=== PATIENT | male | born 1980 | race Caucasian/White ===

== ENCOUNTER 2020-07-02 14:33 | Emergency (ER) | payer BC, SELFPAY ==
--- NOTE | ~2020-07-02 | XR_ITS ---
EXAMINATION: XR chest 2V DATE: 07/02/2020 15:41 INDICATION: Midsternal chest pain. Left arm pain. Ulcer reflux. TECHNIQUE: Frontal and lateral views of the chest were obtained. COMPARISON: Chest 2 views 01/09/2019 FINDINGS: The chest demonstrates clear lungs without pneumonia, pleural effusion, or pneumothorax. Th e heart size is normal. IMPRESSION: 1. No acute cardiopulmonary disease. Reviewed, dictated and finalized at location B. WALL PLASTERER
--- NOTE | 2020-07-02 14:39 | ECG_ITS ---
Measurements Intervals [place] Rate: 80 P: 11 NE: 162 QRS: -9 QRSD: 94 T: -3 QT: 334 QTc: 387 Interpretive Statements SINUS RHYTHM WITH SINUS ARRHYTHMIA DELAYED PRECORDIAL R/S TRANSITION BORDERLINE T WAVE ABNORMALITY- ANT/INF LEADS BORDERLINE ECG Electronically Signed On 07-02-2020 14:46:21 TECHNICAL SALES SUPPORT MANAGER by Jarocho Castro D.O.
[2020-07-02 14:46] VITALS: BP 144/103; PULSE 91; RESP 17; TEMP 36.6; O2SAT 97
[2020-07-02 15:01] LABS: Basophils Percent Auto 0.4 % (0.2-1.2); Eosinophils Absolute Auto 0.1 K/mm3 (0-0.3); Eosinophils Percent Auto 1.5 % (0-4.4); Hemoglobin 17.8 g/dL (14.0-18.0); Immature Granulocyte Absolute 0.02 K/mm3 (0.00-0.031); Immature Granulocyte Percent A 0.3 % (0-0.5); Mean Corpuscular HGB Conc 34.9 g/dl (32-36); Mean Corpuscular Hemoglobin 31.6 pg (26-34); Mean Corpuscular Volume 90.4 fl (80-100); Mean Platelet Volume 9.5 fl (7.4-10.4); Monocytes Absolute Auto 0.4 K/mm3 (0.1-0.6); Monocytes Percent Auto 5.7 % (2.6-8.5); Neutrophils Absolute Auto 4.8 K/mm3 (1.3-6.7); Neutrophils Percent Auto 70.1 % (45.5-73.1); Platelet Count Result 257 k/mm3 (150-375); Red Blood Count 5.64 M/mm3 (4.6-6.20); Red Cell Distribution Width 11.9 % (11.5-14.5); White Blood Count 6.8 K/mm3 (4.5-10.0)
[2020-07-02 15:13] LABS: Anion Gap 9 mmol/L (8-16); Blood Urea Nitrogen 14 mg/dL (9-20); Calcium 9.9 mg/dL (8.4-10.2); Carbon Dioxide 28 mmol/L (22-30); Chloride 102 mmol/L (98-107); Estimated CRCL calculation 133 ml/min; Estimated Glomerular Filt Rate > 60; Glucose 110 mg/dL (75-110); Potassium 3.6 mmol/L (3.4-5.0); Sodium 139 mmol/L (137-145)
[2020-07-02 15:25] LABS: Troponin I < 0.012 ng/mL (0.000-0.034)
--- NOTE | 2020-07-02 15:50 | ED.CHESTPAIN ---
HPI - Chest Pain General Chief Complaint: Chest Pain Stated Complaint: chest pressure, burping, high blood pressure Time Seen by Provider: 07/02/20 15:50 Source: patient Mode of arrival: ambulatory Limitations: no limitations History of Present Illness HPI narrative: Patient is a 39-year-old male who presents to the emergency department for evaluation of chest pain, dizziness. Patient with a past medical history of acid reflux, recently placed on medication for this. Pain started today at 1 pm, center of chest, no associated radiation. Pt has some associating burping. Pt also experienced some radiation of pain to left arm after looking at symptoms on the internet. Pain is currently resolved. No current pain or dyspnea. No cough or fever. No recent sick contacts. Related Data Home Medications Medication Instructions Recorded Confirmed omeprazole 07/02/20 Allergies Allergy/AdvReac Type Severity Reaction Status Date / Time No Known Allergies Allergy Verified 07/02/20 16:14 Review of Systems Review of Systems: Narrative: CONSTITUTIONAL: Denies fever, chills, or sweats. EYES: Denies visual changes, redness, or discharge. ENT: Denies rhinorrhea, congestion, sore throat, or otalgia. CARDIOVASCULAR:No current chest pain or palpitations. RESPIRATORY: Denies cough or dyspnea. GASTROINTESTINAL: Denies abdominal pain, nausea, vomiting, or diarrhea. GENITOURINARY: Denies dysuria or hematuria. SKIN: Denies rash or itching. MUSCULOSKELETAL: Denies back pain, joint pain, or myalgia. NEUROLOGIC: Denies headache, numbness, or weakness. [facility] Past Medical History Medical History (Updated 07/02/20 @ 17:33 by Parisa López MD) Acid reflux Anxiety Social History Social History (Updated 07/02/20 @ 16:13 by Parisa López MD) Smoking status: Never smoker Alcohol intake: current Drinks per week: 5 Substance use: current Substance use type: marijuana Gender identity (if verbalized by the patient): Male Exam Narrative: Exam Narrative: GENERAL: Awake, alert, conversant HEAD: Normocephalic, atraumatic. EYES: PERRLA and EOMI. ENT: Nares clear, no rhinorrhea or epistaxis. Mucous membranes moist. NECK: Supple. CHEST: No respiratory distress, breathing even and non labored, no chest wall tenderness HEART: Regular rate, sinus rhythm ABDOMEN:Non distended, non tender EXTREMITIES: Normal range of motion. No edema. SKIN: Warm, dry, no rash. NEURO:No focal deficits. Alert and oriented x3 Course Vital Signs Vital signs: Vital Signs Temperature 36.6 C 07/02/20 14:46 Pulse Rate 91 07/02/20 14:46 Respiratory Rate 17 07/02/20 14:46 Blood Pressure 144/103 H 07/02/20 14:46 Pulse Oximetry 97 07/02/20 14:46 Temperature 36.6 C 07/02/20 14:46 Pulse Rate 78 07/02/20 16:57 Respiratory Rate 14 07/02/20 16:57 Blood Pressure 149/101 H 07/02/20 16:57 Pulse Oximetry 98 07/02/20 16:57 MDM - Chest Pain MDM Narrative Medical decision making narrative: Patient's EKG and labs are without significant high risk changes. Cardiac risk factors reviewed. Patient is felt low risk for ACS and reasonable for further risk stratification testing as an outpatient. Pain was not sudden or maximal or onset without tearing or ripping quality. No other signs or symptoms to suggest aortic dissection. A low risk well's criteria is noted, PE is felt to be unlikely. No pneumonia seen on evaluation today. Patient heart score is 2. No recurrent chest pain in the ER. Patient also feels his anxiety may be factoring into his symptoms. Patient is felt to be a reasonable candidate for continued evaluation as an outpatient. Differential Diagnosis Differential diagnosis: Likely pneumothorax, stable angina, unstable angina pectoris, atypical chest pain, st elevation myocardial infarction, costochondritis and chest pain Medical Records Data Attestation: I reviewed the patient's medical records. Lab Data Attestation: I revi
[2020-07-02 15:51] LABS: INR 0.9; Prothrombin Time 13.2 Seconds (11.1-14.7)
[2020-07-02 15:52] LABS: Partial Thromboplastin Time 23.5 SECONDS (22.3-36.8)
[2020-07-02 16:12] VITALS: BP 139/97; PULSE 78; RESP 12; O2SAT 97
[2020-07-02] MEDS: ASPIRIN 81 MG CHEWABLE TABLET 324 MG PO (16:12)
[2020-07-02 16:13] VITALS: PULSE 92
[2020-07-02 16:57] VITALS: BP 149/101; PULSE 78; RESP 14; O2SAT 98
[2020-07-02 17:27] LABS: Troponin I < 0.012 ng/mL (0.000-0.034)
[2020-07-02 17:40] VITALS: BP 143/100; PULSE 70; RESP 20; O2SAT 95
== END 2020-07-02 17:40 | disposition home or self-care (01) ==
PROVIDERS: Emergency Medicine; Emergency Provider Emergency Medicine; PCP Family Medicine
DX: R07.89 Other chest pain (principal); R94.31 Abnormal electrocardiogram [ECG] [EKG]
CPT/HCPCS: 36415; 71046; 80048; 84484; 85025; 85610; 85730; 93005; 99284; A9270

== ENCOUNTER 2025-06-28 15:39 | Emergency (ER) | payer BC, SELFPAY ==
--- NOTE | ~2025-06-28 | XR_ITS ---
EXAMINATION: XR chest 2V, 06/28/2025 15:50 [employer]IS NET MAKER HISTORY: chest pain COMPARISON: No comparisons available. Technique: 2 views obtained. Findings: The lungs are clear, no effusion. No pneumothorax. Heart is normal size. Mediastinal and hilar contours are within normal limits. Bony thorax no acute abnormality. Impression: No acute cardiopulmonary abnormality. Reviewed, dictated and finalized at location P. IS NET MAKER Impression: No acute cardiopulmonary abnormality.
--- NOTE | 2025-06-28 15:41 | ECG_ITS ---
Test Date: 2025-06-28 15:45:06 Measurements Intervals [place] Rate: 96 P: 39 DC: 156 QRS: -3 QRSD: 93 T: 22 QT: 337 QTc: 428 Interpretive Statements SINUS RHYTHM POSSIBLE LEFT ATRIAL ENLARGEMENT DELAYED PRECORDIAL R/S TRANSITION BORDERLINE T WAVE ABNORMALITY- ANTERIOR LEADS BORDERLINE ECG No previous ECG available for comparison Electronically Signed On 06-28-2025 15:49:07 PREDICTIVE MAINTENANCE TECHNICIAN by Jarocho Castro D.O.
[2025-06-28 15:45] VITALS: BP 151/87; PULSE 78; RESP 20; TEMP 36.7; O2SAT 100
[2025-06-28 16:13] VITALS: O2SAT 98
[2025-06-28] MEDS: ASPIRIN 81 MG CHEWABLE TABLET 324 MG PO (16:18)
[2025-06-28 16:27] LABS: Hematocrit 47.1 % (42.0-52.0); Hemoglobin 16.1 g/dL (14.0-18.0); Immature Granulocyte Percent A 0.3 % (0-0.5); Lymphocytes Absolute Auto 1.82 K/mm3 (0.9-3.2); Mean Corpuscular HGB Conc 34.2 g/dl (32-36); Mean Corpuscular Hemoglobin 31.4 pg (26-34); Mean Corpuscular Volume 91.8 fl (80-100); Nucleated Red Blood Cells Absolute Auto 0.000 K/mm3 (0.0-0.012); Nucleated Red Blood Cells Perc 0.0 % (0.0-0.2); Platelet Count Result 286 k/mm3 (150-375); Red Blood Count 5.13 M/mm3 (4.6-6.20); White Blood Count 7.0 K/mm3 (4.5-10.0)
[2025-06-28 16:41] LABS: INR 1.0; Prothrombin Time 13.0 Seconds (11.1-14.7)
[2025-06-28 16:42] LABS: Partial Thromboplastin Time 24.4 Seconds (22.3-36.8)
[2025-06-28 16:44] LABS: Alanine Aminotransferase 44 U/L (6-50); Albumin Level 4.9 g/dL (3.5-5.1); Alkaline Phosphatase 76 U/L (38-126); Anion Gap 8 mmol/L (4-12); Aspartate Amino Transferase 35 U/L (17-59); Bilirubin,Total 0.8 mg/dL (0.2-1.3); Blood Urea Nitrogen 12 mg/dL (9-20); Calcium 9.9 mg/dL (8.4-10.2); Carbon Dioxide 28 mmol/L (22-30); Chloride 101 mmol/L (98-107); Estimated CRCL calculation 101 ml/min; Estimated Glomerular Filt Rate > 60; Glucose 111 mg/dL (65-110); Lipase 176 U/L (23-300); Potassium 4.1 mmol/L (3.4-5.0); Sodium 137 mmol/L (137-145); Total Protein 7.9 g/dL (6.3-8.2)
[2025-06-28 16:56] LABS: Troponin I < 0.012 ng/mL (0.000-0.034)
--- NOTE | 2025-06-28 18:01 | ED_ITS ---
HPI - General Adult General Chief complaint: Chest Pain Stated complaint: chest pressure/pain, left shoulder pain Time Seen by Provider: 06/28/25 16:01 History of Present Illness HPI narrative: Patient is a 44-year-old male who presents to the ER with concerns of chest pain. He been having left shoulder pain over last week and had been seeing a chiropractor. Had pinpoint pain in the the trapezius that has improved with time. Today he began having some pressure in his central chest as well as some belching. No exertional component. Has a mother who had coronary disease requiring intervention which increased his anxiety and made him want to be evaluated here. No personal history coronary disease. He is having no abdominal pain at this time. Related Data Home Medications ?Medication ?Instructions ?Recorded ?Confirmed ?Last Taken ?Type omeprazole 20 mg capsule,delayed 07/02/20 07/02/20 H istory release Allergies Allergy/AdvReac Type Severity Reaction Status Date / Time No Known Allergies Allergy Verified 06/28/25 16:15 Review of Systems 2 Review of Systems: All systems reviewed & are unremarkable except as noted in HPI and below Constitutional: Constitutional: Reports no additional constitutional complaints ENT: Reports system reviewed and no additional complaints, except as documented Cardiovascular: Cardiovascular: Reports no additional cardiovascular complaints Respiratory: Respiratory: Reports no additional respiratory complaints Gastrointestinal: Gastrointestinal: Reports no additional gastrointestinal complaints [facility] Past Medical History Medical History (Updated 06/28/25 @ 20:05 by Rush Reina MD) Acid reflux Anxiety Family History Family History (System 11/06/22 @ 15:23 by Cain Dowd) Father Family history of obesity Patient's father is in good health Family history of diabetes mellitus in first degree relative Mother Patient's mother is in good health Sibling Patient's sister is in good health Social History Social History (System 11/06/22 @ 15:23 by Cain Dowd) Smoking status: Never smoker Alcohol intake: current Drinks per week: 5 Substance use: current Substance use type: marijuana Gender identity (if verbalized by the patient): Male Exam 2 Narrative: GENERAL: Well-appearing, well-nourished, and in no acute distress. HEAD: Normocephalic, atraumatic. ENT: Mucous membranes moist. NECK: Supple. CHEST: Clear to auscultation. No respiratory distress. HEART: Regular rate and rhythm. Normal peripheral pulses. ABDOMEN: Soft, nontender, nondistended. EXTREMITIES: Normal range of motion. No edema. SKIN: Warm, dry, no rash. NEURO: Alert and oriented x3. PSYCH: Normal mood and affect. Course Course Emergency Course: Patient resting comfortably. Informed of results. Troponin negative x2. No symptoms here. Appropriate for discharge home. Recommend Pepcid and continued follow-up with PCP. Vital Signs Vital signs: Vital Signs Temperature 98.0 F 06/28/25 15:45 Pulse Rate 78 06/28/25 15:45 Respiratory Rate 20 06/28/25 15:45 Blood Pressure 151/87 H 06/28/25 15:45 Pulse Oximetry 100 06/28/25 15:45 Oxygen Delivery Room Air 06/28/25 15:45 Temperature 98.0 F 06/28/25 15:45 Pulse Rate 78 06/28/25 15:45 Respiratory Rate 20 06/28/25 15:45 Blood Pressure 151/87 H 06/28/25 15:45 Pulse Oximetry 98 06/28/25 16:13 Oxygen Delivery Room Air 06/28/25 16:13 [facility] Differential Diagnosis Differential Diagnosis: ACS, dyspepsia, esophageal spasm, gastric perforation, pulmonary embolism, pneumothorax, musculoskeletal shoulder pain Lab Data [facility] Lab Attestation statement: I personally reviewed the patient's lab results. 06/28/25 16:19 06/28/25 16:20 Labs: Lab Results 06/28/25 06/28/25 06/28/25 Range/Units 16:19 16:20 19:00 WBC 7.0 (4.5-10.0) K/mm3 RBC 5.13 (4.6-6.20) M/mm3 Hgb 16.1 (14.0-18.0) g/dL Hct 47.1 (42.0-52.0) % MCV 91.8 (80-100) fl MCH 31.4 (26-34) pg MCHC 34.2 (32-36) g/dl RDW 12.1 (11.5-14.5) % Plt Count 286 (150-375) k/mm3 MPV 9.4 (7.4-10.4) fl Immature Gran % (Auto) 0.3 (0-0.5) % Neut % (Auto) 66.1 (45.5-73.1) % Lymph % (Auto) 26.0 (18.3-44.2) % [place] % (Auto) 6.3 (2.6-8.5) % Eos % (Auto) 1.0 (0-4.4) % Baso % (Auto) 0.3 (0.2-1.2) % Lymph # (Auto) 1.82 (0.9-3.2) K/mm3 [place] # (Auto) 0.4 (0.1-0.6) K/mm3 Eos # (Auto) 0.1 (0-0.3) K/mm3 Baso # (Auto) 0.0 (0.0-0.1) K/mm3 Abs Immat Gran (auto) 0.02 (0.00-0.031) K/mm3 Absolute Neuts (auto) 4.6 (1.3-6.7) K/mm3 Absolute Nucleated RBC 0.000 (0.0-0.012) K/mm3 Nucleated RBC % 0.0 (0.0-0.2) % PT 13.0 (11.1-14.7) Seconds INR 1.0 APTT 24.4 (22.3-36.8) Seconds Sodium 137 (137-145) mmol/L Potassium 4.1 (3.4-5.0) mmol/L Chloride 101 (98-107) mmol/L Carbon Dioxide 28 (22-30) mmol/L Anion Gap 8 (4-12) mmol/L BUN 12 (9-20) mg/dL Creatinine 1.00 (0.7-1.3) mg/dL Estim Creat Clear Calc 101 ml/min Estimated GFR > 60 (59 - ) Glucose 111 H (65-110) mg/dL Calcium 9.9 (8.4-10.2) mg/dL Total Bilirubin 0.8 (0.2-1.3) mg/dL AST 35 (17-59) U/L ALT 44 (6-50) U/L Alkaline Phosphatase 76 (38-126) U/L Troponin I < 0.012 < 0.012 (0.000-0.034) ng/mL Total Protein 7.9 (6.3-8.2) g/dL Albumin 4.9 (3.5-5.1) g/dL Lipase 176 (23-300) U/L Imaging Data Radiologist's impression: ITS Impressions Chest X-Ray 06/28/25 16:03 Impression: No acute cardiopulmonary abnormality. ECG Data EKG #1: ECG completion date: 06/28/25 ECG completion time: 15:45 normal rate (96), sinus rhythm, non-specific ST changes, normal QRS and normal QT Discharge Plan Discharge Clinical Impression: Atypical chest pain Patient Disposition: Home Condition: Stable Instructions: Chest Pain (ED) Additional Instructions: Please return to the emergency department if you develop severe and persistent chest pain, difficulty breathing, dizziness, leg swelling or if you are coughing up blood as these can be signs of a medical emergency. Please call your doctor for a follow up appointment to determine the need for further testing. Patient Language: Yakut Prescriptions: New famotidine [Pepcid] 20 mg tablet 20 mg PO HS Qty: 14 0RF No Action omeprazole 20 mg capsule,delayed release(DR/EC) Follow-up/Referrals: PHYSICIAN NOT ON STAFF,NONSTAFF [Primary Care Provider] - 1 Week Quality HEART score for chest pain patients History: slightly suspicious ECG: normal Age: < or = to 45 years Risk factors: 1 or 2 risk factors Troponin: < or = to 1x normal limit Heart score: 1
[2025-06-28 19:38] LABS: Troponin I < 0.012 ng/mL (0.000-0.034)
[2025-06-28 21:15] VITALS: BP 132/94; PULSE 57; RESP 16; O2SAT 100
== END 2025-06-28 21:19 | disposition home or self-care (01) ==
PROVIDERS: Emergency Provider Emergency Medicine
DX: R07.89 Other chest pain (principal); F41.9 Anxiety disorder, unspecified
CPT/HCPCS: 36415; 71046; 80053; 83690; 84484; 85025; 85610; 85730; 93005; 99284; A9270